=== PATIENT | male | born 1965 | race Caucasian/White ===

== ENCOUNTER 2016-12-10 20:02 | Emergency (ER) | payer OTHER ==
[~2016-12-10] VITALS: Ht 180.3 cm; Wt 158.8 kg
--- NOTE | ~2016-12-10 | EKG ---
[address] [address] ELECTROCARDIOGRAM REPORT Name: CONNOR MCGOWAN Room #: DEP Jamarcus#: [id number] Admission: 12/10/16 Attend Phys: Discharge: 12/10/16 Date of : 63 Report #: [id number] THIS REPORT FOR: //name// [facility] ED Test Date: 2016-12-10 Test Time: 20:13:11 Pat Name: CONNOR MCGOWAN Department: Room: Gender: M Electrophysiologist: SALONI : 1965 Requested By: Jeanie Hawkins Order Number: [id number] MD: Ankur Lu Measurements Intervals [place] Rate: 82 P: [place]: QRS: 28 QRSD: 97 T: 75 QT: 412 QTc: 482 Interpretive Statements Atrial fibrillation Baseline wander in lead(s) V1,V2,V3 Compared to ECG 03/03/2016 13:57:29 No significant changes Electronically Signed On 12-15-2016 21:45:46 CDT by Ankur Lu [email or web address] <ELECTRONICALLY SIGNED> By: Ankur Lu MD 12/15/16 2145 12 12 Ankur Lu MD /ULYSSES
[~2016-12-10 20:02] MED LIST: ACETAMINOPHEN325 M1 PO; ALUM-MAG HYDRO360 ML PO; AMLODIPINE BESYL5 MG PO; APAP650 PO; ASPIRIN325 PO; BACLOFEN 10MG T10 MG PO; BACTRIM DS TAB1 EACH PO; BACTROBAN CREAM30 G1 TOP; BAYER CHEWABLE81 MG PO; BENADRYL25 MG PO; BISAC-EVAC10 MG RECTAL; BISACODYL SUPP10 MG RECTAL; CARDURA4 MG PO; CARVEDILOL12.5 MG PO; CARVEDILOL25 MG PO; CARVEDILOL6.25 MG PO; CEFTIN500 MG PO; CELEXA 20 MG TA20 M1 PO; CITRATE OF MAG296 ML PO; CLOTRIMAZOLE10 GM MC; COLACE100 MG PO; COREG PO; COZAAR 25 MG TA25 M2 PO; COZAAR 50 MG TA50 M2 PO; COZAAR100 MG PO; DEMADEX20 MG PO; DIOVAN320 MG PO; DOCUSATE SODIU100 MG PO; DUONEB 2.5-0.5 M3 ML INH; ELIQUIS5 MG PO; ENOXAPARIN40 MG/0.1 SUBQ; FAMOTIDINE 20 M20 MG PO; FAMVIR500 MG PO; FLOMAX0.4 MG PO; GERI-LANTA LIQ355 ML PO; HYDRALAZINE 2525 M1 PO; HYDRALAZINE 2525 MG PO; HYDROCHLOROTH12.5 M1 PO; HYDROCHLOROTHIA25 M1 PO; HYDROCHLOROTHIA25 M2 PO; HYDROCODON-ACE1 EAC7 PO; HYDROCORTISONE45 G1 TOP; IBUPROFEN 200200 M1 PO; IBUPROFEN 400400 M1 PO; IBUPROFEN 400400 M2 PO; ICY HOT CREAM35.4 GM TP; IMDUR 30 MG TAB30 M1 PO; KEPPRA 500 MG500 M1 PO; KEPPRA1000 MG PO; LASIX 20 MG TAB20 MG PO; LASIX 40 MG TAB40 M2 PO; LIDOCAINE OINTMENT TOP; LIORESAL 10 MG10 MG PO; LIPITOR 10 MG10 M1 PO; LIPITOR10 MG PO; LOCOID 0.1% CRE15 GM; LOCOID 0.1% CRE15 GM TOP; LORATIDINE 10 M10 M1 PO; LYRICA 50 MG50 MG PO; MACROBID 100 M100 M1 PO; MAG-AL PLUS SUS30 ML PO; MAGOX 400400 MG PO; MEDROLDOSEPACK PO; MILK OF MA2400 MG/10 PO; MIRALAX17 GM PO; MOM PO; MS CONTIN15 MG PO; MUPIROCIN1 GM TP; MUSCLE RUB CRE113 G1 TOP; MYLANTA GAS MA125 MG; NEURONTIN 300300 M1 PO; NITROSTAT0.4 MG SUBLING; NORCO 5-325 TA1 EACH PO; NORVASC 2.5 MG2.5 M1 PO; NORVASC10 MG PO; NYSTATIN1 EA10 TOP; ONDANSETRON ODT4 MG PO; PANTOPRAZOLE SO40 M1 PO; PEPCID20 MG PO; PERCOCET 5-3251 EACH PO; PERIDEX 0.12%473 M1 PO; PERIDEX 0.12%473 M1 SSP; PHENAZOPYRIDIN100 M1 PO; PLAVIX 75 MG TA75 M1 PO; POTASSIUM CHLO20 ME1 PO; POTASSIUM20 PO; PROTONIX40 M1 PO; PROTONIX40 M2 PO; PROTONIX40 MG PO; REGLAN 5 MG TAB5 MG PO; SENNA CONCENTR8.6 MG PO; SENNA LAXATIVE25 MG PO; TYLENOL325 MG PO; VITAMIN D 5050000 I1 PO; VITAMIN D250000 UNIT PO; ZOFRAN4 MG PO; ZOLOFT 50 MG TA50 MG PO; ZOLOFT100 MG PO; ZOLOFT50 MG PO; ZPAK PO
[2016-12-10 20:42] LABS: ABSOLUTE NEUTROPHILS 7.6 thou/uL (1.4-8.2); BASOPHILS 0.5 % (0.0-2.0); EOSINOPHILS 1.5 % (0.0-3.0); HEMATOCRIT 44.7 % (42.0-52.0); HEMOGLOBIN 14.7 gm/dL (14.0-18.0); LYMPHOCYTES 18.2 % (24.0-44.0); MCH 28.6 pg (26.0-34.0); MCHC 32.8 g/dL (28.0-37.0); MCV 87.1 fL (80.0-100.0); MONOCYTES 7.3 % (1.0-8.0); PLATELET COUNT 135 thou/uL (150-400); POLYS 72.5 % (36.0-66.0); RBC 5.13 mil/uL (4.50-6.00); RDW 15.9 % (10.5-14.5); WBC 11.8 thou/uL (4.0-11.0)
[2016-12-10 20:46] LABS: MANUAL DIFF NO
[2016-12-10 20:50] LABS: CALCIUM 9.2 mg/dL (8.5-10.1); CREATININE 0.8 mg/dL (0.7-1.3); POTASSIUM 3.4 mmol/L (3.5-5.1)
[2016-12-10 20:59] LABS: MAGNESIUM 1.8 mg/dL (1.8-2.4); TROPONIN-I 0.18 ng/mL (<0.04-0.07)
[2016-12-10] MEDS ORDERED: NORCO 5-325 TA1 EACH PO (21:49)
== END 2016-12-10 22:35 ==
LOC: ER 20:02
PROVIDERS: Emergency Medicine
DX: R56.9 Unspecified convulsions (principal); R07.9 Chest pain, unspecified; R79.89 Other specified abnormal findings of blood chemistry; I10 Essential (primary) hypertension; E66.9 Obesity, unspecified; G47.33 Obstructive sleep apnea (adult) (pediatric); E78.5 Hyperlipidemia, unspecified; K21.9 Gastro-esophageal reflux disease without esophagitis; F32.9 Major depressive disorder, single episode, unspecified; F41.9 Anxiety disorder, unspecified; G89.29 Other chronic pain; I25.2 Old myocardial infarction; E66.01 Morbid (severe) obesity due to excess calories; F10.99 Alcohol use, unspecified with unspecified alcohol-induced disorder; Z86.718 Personal history of other venous thrombosis and embolism; Z86.14 Personal history of Methicillin resistant Staphylococcus aureus infection; Z86.711 Personal history of pulmonary embolism; Z68.42 Body mass index [BMI] 45.0-49.9, adult; Z88.5 Allergy status to narcotic agent; Z88.8 Allergy status to other drugs, medicaments and biological substances; Z88.0 Allergy status to penicillin; Z87.891 Personal history of nicotine dependence

== ENCOUNTER 2017-04-25 18:59 | Emergency (ER) | payer OTHER ==
[~2017-04-25] VITALS: Ht 175.3 cm; Wt 188.2 kg
[2017-04-25 19:24] LABS: ABSOLUTE NEUTROPHILS 7.4 thou/uL (1.4-8.2); BASOPHILS 0.3 % (0.0-2.0); EOSINOPHILS 1.4 % (0.0-3.0); HEMATOCRIT 42.8 % (42.0-52.0); HEMOGLOBIN 14.4 gm/dL (14.0-18.0); LYMPHOCYTES 13.2 % (24.0-44.0); MCH 29.5 pg (26.0-34.0); MCHC 33.6 g/dL (28.0-37.0); MCV 87.7 fL (80.0-100.0); MONOCYTES 7.4 % (1.0-8.0); PLATELET COUNT 208 thou/uL (150-400); POLYS 77.7 % (36.0-66.0); RBC 4.88 mil/uL (4.50-6.00); RDW 15.2 % (10.5-14.5); WBC 9.5 thou/uL (4.0-11.0)
[2017-04-25 19:37] LABS: CALCIUM 9.1 mg/dL (8.5-10.1); CREATININE 0.9 mg/dL (0.7-1.3); POTASSIUM 3.3 mmol/L (3.5-5.1)
[2017-04-25 19:42] LABS: ALBUMIN 3.4 g/dL (3.4-5.0); DIRECT BILIRUBIN 0.1 mg/dL (<0.1-0.3); TOTAL BILIRUBIN 0.4 mg/dL (<0.1-1.0); TOTAL PROTEIN 7.6 g/dL (6.4-8.2)
[2017-04-25 19:58] LABS: URINE BILIRUBIN NEGATIVE (Negative); URINE BLOOD TRACE (Negative); URINE CLARITY CLEAR; URINE COLOR YELLOW; URINE GLUCOSE-RANDOM* NEGATIVE (Negative); URINE KETONES NEGATIVE (Negative); URINE LEUKOCYTES TRACE (Negative); URINE NITRITE POSITIVE (Negative); URINE PROTEIN (DIPSTICK) NEGATIVE (Negative); URINE UROBILINOGEN 0.2 E.U./dl (0.2-1.0)
[2017-04-25 20:26] LABS: BACTERIA >30 Many /HPF (None Seen); CASTS None Seen /LPF (None Seen); CRYSTALS None Seen /LPF (None Seen); SQUAMOUS 4-10 Moderate /LPF (0-3); URINE RBC 0-2 Rare /HPF (0-2); URINE WBC 0-5 Rare /HPF (0-5)
[2017-04-26 00:06] VITALS: BP 117/71
[2017-08-29] MEDS ORDERED: ALBUTEROL2.5 MG/31 (23:31)
[2017-08-29] MEDS ORDERED: VITAMIN C500 M2 PO (23:32)
[2017-08-29] MEDS ORDERED: BISCODYL PO (23:33)
[2017-08-29] MEDS ORDERED: IRON325 PO (23:34)
[2017-08-29] MEDS ORDERED: MONUROL3 GM PO (23:35)
[2017-08-29] MEDS ORDERED: LIDODERM1 EACH TOP (23:37)
[2017-08-29] MEDS ORDERED: NYAMYC15 GM TOP (23:37)
[2017-08-29] MEDS ORDERED: OXYCODONE HCL 55 MG PO (23:38)
[2017-08-29] MEDS ORDERED: PROTONIX40 M2 PO (23:38)
[2017-08-29] MEDS ORDERED: LYRICA 75 MG CA75 MG PO (23:39)
[2017-08-29] MEDS ORDERED: MIRALAX17 GM PO (23:39)
[2017-08-29] MEDS ORDERED: ALDACTONE50 MG PO (23:40)
[2017-08-29] MEDS ORDERED: COUMADIN 4 MG TA4 M1 PO (23:41)
[2017-08-29] MEDS ORDERED: KEFLEX500 M1 PO (23:42)
== END 2017-04-26 00:07 ==
LOC: ER 18:59
PROVIDERS: Emergency Medicine
DX: N39.0 Urinary tract infection, site not specified (principal); I10 Essential (primary) hypertension; E78.5 Hyperlipidemia, unspecified; G47.33 Obstructive sleep apnea (adult) (pediatric); K21.9 Gastro-esophageal reflux disease without esophagitis; F32.9 Major depressive disorder, single episode, unspecified; F41.9 Anxiety disorder, unspecified; G89.29 Other chronic pain; R07.9 Chest pain, unspecified; E66.01 Morbid (severe) obesity due to excess calories; I69.820 Aphasia following other cerebrovascular disease; G62.9 Polyneuropathy, unspecified; Z68.44 Body mass index [BMI] 60.0-69.9, adult; Z86.14 Personal history of Methicillin resistant Staphylococcus aureus infection; Z86.718 Personal history of other venous thrombosis and embolism

== ENCOUNTER → 2017-08-29 | Emergency (ER) | payer OTHER ==
[~2017-08-29] VITALS: Ht 177.8 cm; Wt 187.8 kg
[~2017-08-29] MED LIST changes: +ALBUTEROL2.5 MG/31; +ALDACTONE50 MG PO; +BISCODYL PO; +COUMADIN 4 MG TA4 M1 PO; +IRON325 PO; +KEFLEX500 M1 PO; +LIDODERM1 EACH TOP; +LYRICA 75 MG CA75 MG PO; +MONUROL3 GM PO; +NYAMYC15 GM TOP; +OXYCODONE HCL 55 MG PO; +VITAMIN C500 M2 PO
== END ==
LOC: ER 21:15
DX: S91.311A Laceration without foreign body, right foot, initial encounter (principal); I10 Essential (primary) hypertension; E78.5 Hyperlipidemia, unspecified; E66.01 Morbid (severe) obesity due to excess calories; K21.9 Gastro-esophageal reflux disease without esophagitis; G40.909 Epilepsy, unspecified, not intractable, without status epilepticus; F41.9 Anxiety disorder, unspecified; F32.9 Major depressive disorder, single episode, unspecified; Z87.891 Personal history of nicotine dependence; Z88.5 Allergy status to narcotic agent; Z88.0 Allergy status to penicillin; W22.8XXA Striking against or struck by other objects, initial encounter; Y93.89 Activity, other specified; Y92.89 Other specified places as the place of occurrence of the external cause; Y99.8 Other external cause status

== ENCOUNTER 2017-08-30 09:56 | Emergency (ER) | payer OTHER ==
[~2017-08-30] VITALS: Ht 182.9 cm; Wt 188.2 kg
[2017-08-30 10:21] LABS: ABSOLUTE NEUTROPHILS 7.2 thou/uL (1.4-8.2); BASOPHILS 0.5 % (0.0-2.0); EOSINOPHILS 1.6 % (0.0-3.0); HEMATOCRIT 42.5 % (42.0-52.0); LYMPHOCYTES 10.7 % (24.0-44.0); MCH 30.1 pg (26.0-34.0); MCV 91.1 fL (80.0-100.0); MONOCYTES 5.5 % (1.0-8.0); PLATELET COUNT 201 thou/uL (150-400); POLYS 81.7 % (36.0-66.0); RBC 4.67 mil/uL (4.50-6.00); RDW 15.2 % (10.5-14.5); WBC 8.8 thou/uL (4.0-11.0)
[2017-08-30 10:29] LABS: CALCIUM 8.8 mg/dL (8.5-10.1); POTASSIUM 3.5 mmol/L (3.5-5.1)
== END 2017-08-30 12:57 ==
LOC: ER 09:56
PROVIDERS: Emergency Medicine
DX: G40.909 Epilepsy, unspecified, not intractable, without status epilepticus (principal); I10 Essential (primary) hypertension; E78.5 Hyperlipidemia, unspecified; K21.9 Gastro-esophageal reflux disease without esophagitis; E66.01 Morbid (severe) obesity due to excess calories; Z87.891 Personal history of nicotine dependence; Z88.0 Allergy status to penicillin; Z88.5 Allergy status to narcotic agent

== ENCOUNTER 2018-03-01 07:14 | Inpatient (IN) | payer OTHER ==
[2018-03-01] VITALS (7 sets, daily range): BP systolic 110–149; BP diastolic 57–90
[~2018-03-01] VITALS: Ht 177.8 cm; Wt 183.7 kg
--- NOTE | ~2018-03-01 | EKG ---
[address] [address] ELECTROCARDIOGRAM REPORT Name: CONNOR MCGOWAN Room #: 353-P ADM IN M.R.#: [id number] Admission: 03/01/18 Attend Phys: Aniceto Carpenter Discharge: Date of : 63 Report #: [id number] THIS REPORT FOR: //name// [facility] ED Test Date: 2018-03-01 Test Time: 07:49:36 Pat Name: CONNOR MCGOWAN Department: Room: 353 Gender: M Pipe Smoking Machine Offbearer: [facility] : 1965 Requested By: Jeanie Hawkins Order Number: [id number] MD: Hector Gottlieb Measurements Intervals [place] Rate: 136 P: NC: QRS: 45 QRSD: 82 T: 53 QT: 275 QTc: 414 Interpretive Statements Atrial fibrillation Low voltage, precordial leads Compared to ECG 12/10/2016 20:13:11 Low QRS voltage now present Electronically Signed On 03-02-2018 9:14:16 CDT by Hector Gottlieb [email or web address] <ELECTRONICALLY SIGNED> By: Hector Gottlieb MD, [facility] 03/02/18 0914 0749 0749 Hector Gottlieb MD, FACC /EPI
--- NOTE | ~2018-03-01 | EKG ---
[address] [place] [address] ELECTROCARDIOGRAM REPORT Name: CONNOR MCGOWAN Room #: 353-P ADM IN M.R.#: [id number] Admission: 03/01/18 Attend Phys: Aniceto Carpenter Discharge: Date of : 63 Report #: [id number] THIS REPORT FOR: //name// [facility] Test Date: 2018-03-02 Test Time: 12:45:02 Pat Name: CONNOR MCGOWAN Department: Room: 353 P Gender: M Site Medical Director: Korina JOHNSON : 1965 Requested By: Hayes Hernandez Order Number: [id number] MD: Hector Gottlieb Measurements Intervals [place] Rate: 94 P: [place]: QRS: 41 QRSD: 90 T: 60 QT: 337 QTc: 422 Interpretive Statements Atrial fibrillation Otherwise no significant abnormality Compared to ECG 03/01/2018 07:49:36 Heart rate has slowed Electronically Signed On 03-02-2018 17:09:47 CDT by Hector Gottlieb [email or web address] <ELECTRONICALLY SIGNED> By: Hector Gottlieb MD, [facility] 03/02/18 1709 D: 10/5 1245 Hector Gottlieb MD, FACC /EPI
--- NOTE | ~2018-03-01 | HC ---
[facility] [place] [address] CONSULTATION Name: CONNOR MCGOWAN Room #: 353-P ADM IN M.R.#: [id number] Admission: 03/01/18 Attend Phys: Aniceto Carpenter Discharge: Date of : 63 Report #: [id number] THIS REPORT FOR: //name// CC: Varun GARCIA physician/PCP Aniceto Carpenter DATE OF SERVICE: 03/02/2018 REASON FOR CONSULTATION: I was asked to evaluate concerning gram-negative bacteremia and sepsis. HISTORY OF PRESENT ILLNESS: The patient is a 52-year-old with previous stroke, intermediate resident, who was admitted through the Emergency Room yesterday with decreased mental status, tachycardia, found to be in atrial fibrillation with rapid ventricular response. He had temperature up to 101.6 degrees. His rate was controlled. Admitted to the Med/Surg floor. Blood cultures were obtained and now growing gram-negative bacilli. The patient was unable to give any further details. Did not report any chest pain, nausea, vomiting or diarrhea. No dysuria or back pain. The patient was a poor historian. He had aphasia from his previous stroke. He is essentially bedbound and does get up to a wheelchair with assistance from the intermediate. REVIEW OF SYSTEMS: The patient was unable to complete a 10-point review of systems. PAST MEDICAL HISTORY: Left hemorrhagic stroke, status post craniotomy, right hemiparesis with expressive aphasia 2011, pneumonia, DVT with IVC filter placed. The patient's mother states that he had further treatment at [facility] within the last several months. She could not elaborate further on this. Hypertension, hyperlipidemia, obesity, obstructive sleep apnea, gastroesophageal reflux, seizure disorder, anxiety, depression, chronic pain, myocardial infarction, cardiac stenting, venous stasis disease and cellulitis, vitamin D deficiency. ALLERGIES: LUKAS INHIBITORS, MORPHINE, PENICILLIN, ALTHOUGH HAS TOLERATED ZOSYN WITHOUT ISSUE. HE WAS GIVEN FOSFOMYCIN IN THE LONGTERM. MEDICATIONS: As noted on his MAR, which were reviewed. Was also on Coumadin. Now on Zosyn. FAMILY HISTORY: Noncontributory. SOCIAL HISTORY: Nonsmoker. No significant alcohol use, although previously had issues with narcotic addiction. [facility] [address] [place] [address] CONSULTATION Name: CONNOR MCGOWAN Room #: 353-P [facility] IN M.R.#: [id number] Admission: 03/01/18 Attend Phys: Aniceto Carpenter Discharge: Date of : 63 Report #: [id number] PHYSICAL EXAMINATION: GENERAL: The patient was awake and verbally responsive, although unable to give a significant history. SKIN: Mild venous stasis changes to his right lower leg without evidence of cellulitis. The patient was morbidly obese, well developed, well nourished, appeared his stated age. I was unable to roll him over to take a look at his backside. He had right hemiparesis. HEENT: Eyes were without scleral icterus or conjunctivitis. Mouth: No oral lesions or mucositis. NECK: Supple, no palpable adenopathy. LUNGS: Clear anteriorly. HEART: Regular without appreciable murmur, gallop or rub. ABDOMEN: Obese, soft, nontender with no hepatosplenomegaly or mass, able to be palpated. EXTREMITIES: Trace edema mostly on the right. NEUROLOGIC: He had generalized weakness, seemed more prominent on the right. Cranial nerves otherwise intact. Sensation intact. PSYCHIATRIC: No anxiety or depression noted. PELVIC: An indwelling Ortiz catheter with no lesion or mass to the external genitalia. LABORATORY STUDIES: Sodium 137, potassium 4.2, bicarbonate 27, creatinine 2.5, lactate 2.2. Liver function tests normal. BNP 7247. Hemoglobin 13.6, platelet count 115,000, WBC 20,000. TSH 2.4. Urinalysis, few wbc's, many bacteria. Blood cultures, gram-negative bacilli. Chest x-ray, right lower lobe pulmonary nodule. IMPRESSION: 1. A 52-year-old intermediate resident with fever, change in mental status, gram-negative bacteremia, and sepsis. 2. Atrial fibrillation with rapid ventricular response, morbid obesity, acute kidney injury. RECOMMENDATION: We will continue IV antibiotic therapy pending further culture results. Further imaging of the patient's abdomen and pelvis to help identify source. We will need further help in moving the patient in order to reassess his sacrum for evidence of any decubitus that may be contributing here. I have discussed with the patient's mother at the bedside. <ELECTRONICALLY SIGNED> By: Narayan Linder MD 03/03/18 0846 1333 2240 Narayan Linder MD /nt
--- NOTE | ~2018-03-01 | HC ---
[facility] [place] [address] CONSULTATION Name: CONNOR MCGOWAN Room #: 353-P ADM IN M.R.#: [id number] Admission: 03/01/18 Attend Phys: Aniceto Carpenter Discharge: Date of : 63 Report #: [id number] THIS REPORT FOR: //name// CC: Varun GARCIA physician/PCP Aniceto Carpenter HISTORY OF PRESENT ILLNESS: The patient is a 52-year-old gentleman with a history of remote left temporal hemorrhagic stroke requiring left frontotemporal craniotomy with residual hemiplegia and aphasia (2011). He has a history of permanent atrial fibrillation, chronically elevated troponin levels in a nondiagnostic range, prior DVT with pulmonary emboli. He now presents from the nursing facility with altered mental status. He is found to have an elevated white count and Gram-negative rods in his blood. Heart rates have been higher than usual. I have been asked to see him in this regard. A variety of Cardiology imaging or diagnostic testing procedures have been performed, all have been technically limited in light of his morbid obesity. In 2012, an echocardiogram, although technically difficult was thought to demonstrate normal systolic function. He is arousable and attempts single word answers to questions. He denies pain. His atrial fibrillation has been mildly elevated, although this is in the setting of high fever and sepsis. He denies palpitations or symptoms from his atrial dysrhythmia. MEDICATIONS: His reported medicines include aspirin 81 mg daily, baclofen, carvedilol, Lasix 40 mg twice daily, hydralazine 50 mg 4 times a day, iron, Keppra 1000 mg twice daily, Lipitor 10 mg daily, Lyrica, Nitrostat, Norvasc 5 mg daily, oxycodone, Pamelor 10 mg at bedtime, Plavix 75 mg daily, primidone 12.5 mg daily, Aldactone 50 mg twice daily, Flomax 0.4 mg daily, Zoloft. PAST MEDICAL HISTORY: Notable for a hemorrhagic stroke, hypertension, dyslipidemia, sleep apnea, neuropathy, morbid obesity, seizure disorder. SOCIAL HISTORY: Not obtainable. FAMILY HISTORY: Not obtainable. REVIEW OF SYSTEMS: Not obtainable. PHYSICAL EXAMINATION: GENERAL: Reveals a morbidly obese gentleman who is alert. He is arousable. VITAL SIGNS: Temperature is 98.4 degrees, blood pressure is 130/82, heart rate of 100 and irregular. HEENT: There are neither xanthelasma, subcutaneous xanthomata, oral mucosal, digital cyanosis or kyphoscoliosis present. CHEST: Reveals equal but distant breath sounds. CARDIAC: Irregularly irregular rhythm with normal S1, S2. ABDOMEN: Soft, morbidly obese. [facility] [address] [place] [address] CONSULTATION Name: CONNOR MCGOWAN Room #: 353-P [facility] IN M.R.#: [id number] Admission: 03/01/18 Attend Phys: Aniceto Carpenter Discharge: Date of : 63 Report #: [id number] EXTREMITIES: Reveal chronic venous stasis changes. NEUROLOGIC: Hemiparesis and aphasic. LABORATORY DATA: Sodium 135, potassium 4.8, creatinine 2.1. Troponin 0.06. Troponin has never been normal. There are dozens of troponins that have been ordered. ProBNP of 72/47. White count 31,000. Gram-negative rods in 2 blood cultures. EKG: Atrial fibrillation. IMPRESSION: 1. Gram-negative sepsis. 2. Permanent atrial fibrillation. 3. Encephalopathy. 4. Acute kidney injury. 5. Prior hemorrhagic stroke. 6. Seizure disorder. 7. Hypertension. 8. Chronic diastolic heart failure. 9. History of deep venous thrombosis with inferior vena cava filter. 10. Chronically elevated troponin. RECOMMENDATIONS: 1. Atrial fibrillation, rates are reasonably well controlled. Higher than usual rates are expected in the setting of sepsis, this should improve as his infection improves. 2. Continued pharmacologic therapy for diastolic heart failure, volume status appears to be stable. 3. Primary treatment. I agree with primary treatment and therapy directed towards sepsis and Gram-negative jaxon bacteremia. <ELECTRONICALLY SIGNED> By: Hector Gottlieb MD, [facility] 03/05/18 0905 0814 1348 Hector Gottlieb MD, FACC /nt
--- NOTE | ~2018-03-01 | HC ---
[facility] [place] [address] CONSULTATION Name: CONNOR MCGOWAN Room #: 353-P ADM IN M.R.#: [id number] Admission: 03/01/18 Attend Phys: Aniceto Carpenter Discharge: Date of : 63 Report #: [id number] THIS REPORT FOR: //name// CC: Varun GARCIA physician/PCP Aniceto Carpenter DATE OF SERVICE: 03/04/2018 CHIEF COMPLAINT: Right shoulder pain. HISTORY OF PRESENT ILLNESS: The patient is a 52-year-old gentleman seen today for evaluation of his right shoulder. The patient was admitted on 03/01/2018 after the half-way staff noticed decreased mentation and changes in his mental status. He has a baseline history of being noncommunicative with a history of chronic deficits of the right side due to a prior CVA. There was concern for possible cellulitis about the shoulder, which was why Orthopedics was asked to evaluate him. Apparently, he has a history of right shoulder pain that is chronic in nature and has had prior surgical treatment on the shoulder. PAST MEDICAL HISTORY: Extensive including abdominal pain, abnormal liver function test, acute kidney injury, a-fib, altered mental status, chest pain, congestive heart failure, elevated troponin, healthcare-associated pneumonia, hyperkalemia, left leg pain, leukocytosis, new-onset atrial fibrillation, non-ST elevated MD, pulmonary edema, rash, history of right lower extremity injury, seizures, sepsis, toe laceration, urinary retention, urinary tract infections, ventricular tachycardia. ALLERGIES: LUKAS INHIBITORS, MORPHINE. THE PATIENT HAS HAD AN ADDICTION TO MORPHINE IN THE PAST AND PENICILLIN. CURRENT MEDICATIONS: Please see current MAR. PAST SURGICAL HISTORY: Left hemorrhagic temporal lobe CVA with craniotomy in 01/2012, right-sided deficits with expressive aphasia, prior tracheostomy which was closed, DVTs in bilateral lower extremities with filter placement. SOCIAL HISTORY: The patient resides in a half-way, prior history of recreational drug use. Denied tobacco use, no alcohol use. PHYSICAL EXAMINATION: GENERAL: The patient is awake in bed, answers questions to the best of his ability. VITAL SIGNS: The patient has shallow breath, is on nasal cannula 4 liters of O2. Temperature 35.9, pulse 85, respirations 18, BP 117/84. EXTREMITIES: Examination of the shoulders, right shoulder demonstrates [address] [address] CONSULTATION Name: CONNOR MCGOWAN Room #: 353-P [facility] IN M.R.#: [id number] Admission: 03/01/18 Attend Phys: Aniceto Carpenter Discharge: Date of : 63 Report #: [id number] well-healed prior incisions with tattoos noted over the lateral arm, generalized stiffness of the shoulder is noted with passive forward elevation of approximately 90 degrees, external rotation of 5 degrees. At the end ranges of motion, the patient nods with some discomfort. He otherwise has no pain in the more limited arc of motion that he has present. Motor deficits prevent any significant manual muscle testing. I see no surrounding erythema. No fluctuance or increased warmth on the right shoulder as compared to the left. Left shoulder, he has active forward elevation of 120 degrees, external rotation 30 degrees. He has good strength with resisted strength testing. Negative impingement signs. Some mild edema in the right upper extremity is noted and it is lying at a side. Shoulder radiographs reveal some mild widening of the AC joint with prior acromioplasty. No acute fractures. They mention subacromial joint space widening for possible effusion, I think this is more likely related to his decreased muscular tone from a stroke. LABORATORY DATA: Reveals urine culture gram-negative rods. Blood culture, gram-negative rods. IMPRESSION: 1. Right shoulder pain and stiffness. History of probable rotator cuff repair and distal clavicle excision. 2. Multiple medical comorbidities and acute sepsis with likely urinary source. PLAN: At this point, Physical Therapy can perform some gentle range of motion exercises on the shoulder. I would not recommend any other interventional studies unless more suspicion warmth, erythema or pain could be localized to the shoulder. At that point, an MRI could be considered. As long as the patient is responding to his current treatment for his urinary tract infection and sepsis, he could be seen on an as needed basis for his shoulder. With his underlying cognitive function and hemiparesis, there may be limited treatment options for him. We will be available for further followup if needed. <ELECTRONICALLY SIGNED> By: Reza Lee MD 03/06/18 0904 1247 2108 Reza Lee MD /nt
[2018-03-01 07:38] LABS: HEMATOCRIT 43.1 % (42.0-52.0); HEMOGLOBIN 14.6 gm/dL (14.0-18.0); MCH 30.4 pg (26.0-34.0); MCHC 33.8 g/dL (28.0-37.0); MCV 90.1 fL (80.0-100.0); PLATELET COUNT 148 thou/uL (150-400); RBC 4.79 mil/uL (4.50-6.00); WBC 31.6 thou/uL (4.0-11.0)
[2018-03-01 07:49] LABS: CALCIUM 9.4 mg/dL (8.5-10.1); CREATININE 2.1 mg/dL (0.7-1.3); POTASSIUM 4.8 mmol/L (3.5-5.1)
[2018-03-01 07:55] LABS: ALBUMIN 2.8 g/dL (3.4-5.0); DIRECT BILIRUBIN 0.5 mg/dL (<0.1-0.3); TOTAL BILIRUBIN 0.9 mg/dL (<0.1-1.0); TOTAL PROTEIN 7.7 g/dL (6.4-8.2)
[2018-03-01 08:10] LABS: BE(vivo) -0.4 mmol/L (-2 to +3); HCO3 22.8 mmol/L (22.0-26.0); PCO2 33.6 mmHg (35.0-45.0); PO2 71.1 mmHg (80.0-100.0); sO2 95.1 % (92.0-98.0)
[2018-03-01 08:34] LABS: ABSOLUTE NEUTROPHILS 29.4 thou/uL (1.4-8.2)
[2018-03-01 09:31] LABS: URINE BILIRUBIN NEGATIVE (Negative); URINE BLOOD 2+ (Negative); URINE COLOR YELLOW; URINE GLUCOSE-RANDOM* NEGATIVE (Negative); URINE KETONES NEGATIVE (Negative); URINE NITRITE-REFLEX NEGATIVE (Negative); URINE PROTEIN (DIPSTICK) 1+ (Negative); URINE SPECIFIC GRAVITY 1.025 (1.005-1.035); URINE UROBILINOGEN 0.2 E.U./dl (0.2-1.0)
[2018-03-01 09:33] LABS: URINE LEUKOCYTES-REFLEX 1+ (Negative)
[2018-03-01 09:34] LABS: URINE CLARITY CLOUDY
[2018-03-01 09:48] LABS: CASTS None Seen /LPF (None Seen); SQUAMOUS >10 Many /LPF (0-3)
[2018-03-01 09:49] LABS: BACTERIA-REFLEX >30 Many /HPF (None Seen); URINE RBC 0-2 Rare /HPF (0-2); URINE WBC-REFLEX 6-15 Few /HPF (0-5)
[2018-03-01 09:50] LABS: AMORPHOUS URATES Moderate /LPF (None Seen)
[2018-03-02] VITALS (7 sets, daily range): BP systolic 89–137; BP diastolic 53–83
[2018-03-02 12:49] LABS: HEMATOCRIT 40.4 % (42.0-52.0); HEMOGLOBIN 13.6 gm/dL (14.0-18.0); MCH 30.3 pg (26.0-34.0); MCHC 33.7 g/dL (28.0-37.0); MCV 90.1 fL (80.0-100.0); RBC 4.49 mil/uL (4.50-6.00); RDW 15.9 % (10.5-14.5); WBC 20.8 thou/uL (4.0-11.0)
[2018-03-02 12:52] LABS: CALCIUM 9.3 mg/dL (8.5-10.1); CREATININE 2.5 mg/dL (0.7-1.3); POTASSIUM 4.2 mmol/L (3.5-5.1)
[2018-03-02 13:01] LABS: TROPONIN-I 0.06 ng/mL (<0.06)
[2018-03-03 04:24] LABS: ABSOLUTE NEUTROPHILS 15.7 thou/uL (1.4-8.2); BASOPHILS 0.2 % (0.0-2.0); EOSINOPHILS 0.2 % (0.0-3.0); HEMATOCRIT 38.1 % (42.0-52.0); HEMOGLOBIN 12.5 gm/dL (14.0-18.0); LYMPHOCYTES 3.6 % (24.0-44.0); MCH 29.7 pg (26.0-34.0); MCHC 32.8 g/dL (28.0-37.0); MCV 90.5 fL (80.0-100.0); MONOCYTES 9.8 % (1.0-8.0); PLATELET COUNT 120 thou/uL (150-400); POLYS 86.2 % (36.0-66.0); RBC 4.21 mil/uL (4.50-6.00); RDW 16.1 % (10.5-14.5); WBC 18.2 thou/uL (4.0-11.0)
[2018-03-03 04:35] VITALS: BP 126/69
[2018-03-03 04:52] LABS: CALCIUM 8.5 mg/dL (8.5-10.1); CREATININE 2.2 mg/dL (0.7-1.3); POTASSIUM 3.9 mmol/L (3.5-5.1)
[2018-03-03 07:49] VITALS: BP 124/79
[2018-03-03 11:21] VITALS: BP 142/91
[2018-03-03 17:19] VITALS: BP 116/75
[2018-03-03 20:19] VITALS: BP 117/73
[2018-03-04 04:07] LABS: CALCIUM 9.1 mg/dL (8.5-10.1); CREATININE 1.8 mg/dL (0.7-1.3); POTASSIUM 3.9 mmol/L (3.5-5.1)
[2018-03-04 04:25] VITALS: BP 126/75
[2018-03-04 04:44] LABS: HEMATOCRIT 38.8 % (42.0-52.0); HEMOGLOBIN 12.9 gm/dL (14.0-18.0); MCHC 33.3 g/dL (28.0-37.0); MCV 90.1 fL (80.0-100.0); PLATELET COUNT 120 thou/uL (150-400); RBC 4.31 mil/uL (4.50-6.00); RDW 16.2 % (10.5-14.5); WBC 15.1 thou/uL (4.0-11.0)
[2018-03-04 08:41] LABS: ABSOLUTE NEUTROPHILS 11.5 thou/uL (1.4-8.2); POLYCHROMASIA OCCASIONAL
[2018-03-04 08:42] LABS: ANISOCYTOSIS 1+
[2018-03-04 09:05] VITALS: BP 117/84
[2018-03-04 09:23] LABS: INR 1.5; PROTIME 15.3 Seconds (9.3-11.4)
[2018-03-04 14:02] VITALS: BP 121/81
[2018-03-04 18:20] VITALS: BP 173/98
[2018-03-04 18:24] VITALS: BP 119/77
[2018-03-04 19:59] VITALS: BP 102/63
[2018-03-05 03:30] VITALS: BP 116/76
[2018-03-05 06:29] LABS: HEMATOCRIT 38.7 % (42.0-52.0); HEMOGLOBIN 12.8 gm/dL (14.0-18.0); MCH 30.1 pg (26.0-34.0); MCHC 33.2 g/dL (28.0-37.0); MCV 90.9 fL (80.0-100.0); PLATELET COUNT 122 thou/uL (150-400); RBC 4.26 mil/uL (4.50-6.00); RDW 16.3 % (10.5-14.5); WBC 12.4 thou/uL (4.0-11.0)
[2018-03-05 06:40] LABS: CALCIUM 8.9 mg/dL (8.5-10.1); CREATININE 1.5 mg/dL (0.7-1.3); POTASSIUM 4.1 mmol/L (3.5-5.1)
[2018-03-05 07:39] VITALS: BP 110/73
[2018-03-05 07:48] LABS: ANISOCYTOSIS 1+
[2018-03-05 11:38] VITALS: BP 126/73
[2018-03-05 16:58] VITALS: BP 127/79
[2018-03-05 20:21] VITALS: BP 117/80
[2018-03-06 04:49] VITALS: BP 113/69
[2018-03-06 05:53] LABS: ABSOLUTE NEUTROPHILS 10.6 thou/uL (1.4-8.2); BASOPHILS 0.4 % (0.0-2.0); EOSINOPHILS 0.8 % (0.0-3.0); HEMATOCRIT 38.1 % (42.0-52.0); HEMOGLOBIN 12.2 gm/dL (14.0-18.0); LYMPHOCYTES 9.4 % (24.0-44.0); MCH 29.2 pg (26.0-34.0); MCHC 31.9 g/dL (28.0-37.0); MCV 91.5 fL (80.0-100.0); MONOCYTES 8.2 % (1.0-8.0); PLATELET COUNT 152 thou/uL (150-400); POLYS 81.2 % (36.0-66.0); RBC 4.16 mil/uL (4.50-6.00); RDW 16.4 % (10.5-14.5); WBC 13.1 thou/uL (4.0-11.0)
[2018-03-06 06:04] LABS: CALCIUM 8.6 mg/dL (8.5-10.1); CREATININE 1.3 mg/dL (0.7-1.3); POTASSIUM 4.6 mmol/L (3.5-5.1)
[2018-03-06 07:37] VITALS: BP 125/77
[2018-03-06 11:05] LABS: PROTIME 26.4 Seconds (9.3-11.4)
[2018-03-06 11:06] VITALS: BP 151/72
[2018-03-06 11:06] LABS: INR 2.5
[2018-03-06 16:14] VITALS: BP 142/78
[2018-03-06 19:45] VITALS: BP 163/80
[2018-03-07 04:10] VITALS: BP 149/79
[2018-03-07 06:51] LABS: ABSOLUTE NEUTROPHILS 11.1 thou/uL (1.4-8.2); BASOPHILS 0.3 % (0.0-2.0); EOSINOPHILS 1.3 % (0.0-3.0); HEMATOCRIT 37.3 % (42.0-52.0); HEMOGLOBIN 12.1 gm/dL (14.0-18.0); LYMPHOCYTES 8.1 % (24.0-44.0); MCH 29.4 pg (26.0-34.0); MCHC 32.4 g/dL (28.0-37.0); MCV 90.9 fL (80.0-100.0); MONOCYTES 6.3 % (1.0-8.0); PLATELET COUNT 184 thou/uL (150-400); RBC 4.11 mil/uL (4.50-6.00); RDW 16.4 % (10.5-14.5); WBC 13.1 thou/uL (4.0-11.0)
[2018-03-07 07:00] LABS: CALCIUM 8.4 mg/dL (8.5-10.1); CREATININE 1.1 mg/dL (0.7-1.3); POTASSIUM 4.5 mmol/L (3.5-5.1); TOTAL BILIRUBIN 0.5 mg/dL (<0.1-1.0); TOTAL PROTEIN 6.7 g/dL (6.4-8.2)
[2018-03-07 08:13] VITALS: BP 114/87
[2018-03-07] MEDS ORDERED: CARDIZEM CD240 MG PO (12:06)
[2018-03-07] MEDS ORDERED: CEFDINIR300 MG PO (12:06)
[2018-03-07] MEDS ORDERED: COLACE100 MG PO (12:16)
[2018-03-07] MEDS ORDERED: SENNA8.6 MG PO (12:16)
[2018-03-07 12:58] VITALS: BP 102/68
[2018-03-07 16:33] VITALS: BP 112/71
[2018-03-07 20:00] VITALS: BP 135/76
[2018-03-08 04:20] VITALS: BP 123/65
[2018-03-08 06:37] LABS: ABSOLUTE NEUTROPHILS 11.8 thou/uL (1.4-8.2); BASOPHILS 0.3 % (0.0-2.0); EOSINOPHILS 0.9 % (0.0-3.0); HEMOGLOBIN 12.6 gm/dL (14.0-18.0); MCH 29.8 pg (26.0-34.0); MCHC 33.2 g/dL (28.0-37.0); MCV 89.9 fL (80.0-100.0); PLATELET COUNT 214 thou/uL (150-400); POLYS 84.8 % (36.0-66.0); RBC 4.23 mil/uL (4.50-6.00); RDW 16.2 % (10.5-14.5); WBC 13.9 thou/uL (4.0-11.0)
[2018-03-08 06:56] LABS: CALCIUM 8.7 mg/dL (8.5-10.1); CREATININE 0.9 mg/dL (0.7-1.3); POTASSIUM 4.6 mmol/L (3.5-5.1)
[2018-03-08 07:12] VITALS: BP 124/87
[2018-03-08 11:12] VITALS: BP 131/74
[2018-03-08 15:35] VITALS: BP 136/77
[2018-03-08 19:20] VITALS: BP 128/79
[2018-03-09 04:20] VITALS: BP 150/93
[2018-03-09 05:37] LABS: ABSOLUTE NEUTROPHILS 11.8 thou/uL (1.4-8.2); BASOPHILS 0.1 % (0.0-2.0); EOSINOPHILS 0.6 % (0.0-3.0); HEMATOCRIT 37.5 % (42.0-52.0); HEMOGLOBIN 12.1 gm/dL (14.0-18.0); LYMPHOCYTES 10.5 % (24.0-44.0); MCH 29.1 pg (26.0-34.0); MCHC 32.2 g/dL (28.0-37.0); MCV 90.4 fL (80.0-100.0); PLATELET COUNT 236 thou/uL (150-400); POLYS 83.8 % (36.0-66.0); RBC 4.15 mil/uL (4.50-6.00); RDW 15.8 % (10.5-14.5); WBC 14.2 thou/uL (4.0-11.0)
[2018-03-09 05:49] LABS: ALBUMIN 2.1 g/dL (3.4-5.0); CALCIUM 8.2 mg/dL (8.5-10.1); CREATININE 0.9 mg/dL (0.7-1.3); PHOSPHORUS 3.2 mg/dL (2.5-4.9); POTASSIUM 4.5 mmol/L (3.5-5.1)
[2018-03-09 05:50] LABS: INR 3.4; PROTIME 35.2 Seconds (9.3-11.4)
[2018-03-09 07:44] VITALS: BP 123/87
[2018-03-09 10:58] VITALS: BP 111/68
== END 2018-03-09 18:29 | DRG 871 ==
LOC: ER 07:14 → EROBS 09:17 → 3W 09:17
PROVIDERS: Emergency Medicine; Family Medicine; Hospitalist
DX: A41.50 Gram-negative sepsis, unspecified (principal); G93.41 Metabolic encephalopathy; J15.0 Pneumonia due to Klebsiella pneumoniae; J96.21 Acute and chronic respiratory failure with hypoxia; N17.9 Acute kidney failure, unspecified; I50.32 Chronic diastolic (congestive) heart failure; N12 Tubulo-interstitial nephritis, not specified as acute or chronic; N20.1 Calculus of ureter; Z68.43 Body mass index [BMI] 50.0-59.9, adult; G47.33 Obstructive sleep apnea (adult) (pediatric); E78.5 Hyperlipidemia, unspecified; K21.9 Gastro-esophageal reflux disease without esophagitis; G40.909 Epilepsy, unspecified, not intractable, without status epilepticus; G89.29 Other chronic pain; E66.01 Morbid (severe) obesity due to excess calories; G62.9 Polyneuropathy, unspecified; F32.9 Major depressive disorder, single episode, unspecified; E55.9 Vitamin D deficiency, unspecified; I48.2 Chronic atrial fibrillation; I11.0 Hypertensive heart disease with heart failure; M25.419 Effusion, unspecified shoulder; M19.011 Primary osteoarthritis, right shoulder; K59.00 Constipation, unspecified; Z86.73 Personal history of transient ischemic attack (TIA), and cerebral infarction without residual deficits; Z93.0 Tracheostomy status; Z86.718 Personal history of other venous thrombosis and embolism; Z88.6 Allergy status to analgesic agent; Z88.0 Allergy status to penicillin; Z88.8 Allergy status to other drugs, medicaments and biological substances; I25.2 Old myocardial infarction; Z79.899 Other long term (current) drug therapy
CPT/HCPCS: 10879

== ENCOUNTER 2018-10-02 21:27 | Inpatient (IN) | payer OTHER ==
[~2018-10-02] VITALS: Ht 177.8 cm; Wt 195.0 kg
[~2018-10-02 21:27] MED LIST changes: +CARDIZEM CD240 MG PO; +CEFDINIR300 MG PO; +SENNA8.6 MG PO
[2018-10-02] MEDS ORDERED: COLACE 100 MG100 MG PO (21:47)
[2018-10-02] MEDS ORDERED: TIGER BALM MUSC57 GM (21:49)
[2018-10-02] MEDS ORDERED: TYLENOL325 MG PO (21:52)
[2018-10-02] MEDS ORDERED: COUMADIN 4 MG TA4 M1 PO (21:53)
[2018-10-02] MEDS ORDERED: ALDACTONE50 MG PO (21:54)
[2018-10-02 22:04] LABS: ABSOLUTE NEUTROPHILS 5.5 thou/uL (1.4-8.2); BASOPHILS 0.7 % (0.0-2.0); EOSINOPHILS 2.5 % (0.0-3.0); HEMATOCRIT 40.1 % (42.0-52.0); HEMOGLOBIN 13.3 gm/dL (14.0-18.0); LYMPHOCYTES 23.5 % (24.0-44.0); MCH 30.4 pg (26.0-34.0); MCHC 33.2 g/dL (28.0-37.0); MCV 91.5 fL (80.0-100.0); PLATELET COUNT 169 thou/uL (150-400); POLYS 65.3 % (36.0-66.0); RBC 4.38 mil/uL (4.50-6.00); RDW 14.6 % (10.5-14.5); WBC 8.4 thou/uL (4.0-11.0)
[2018-10-02 22:19] LABS: APTT 40.1 Seconds (24.5-32.8)
[2018-10-02 22:25] LABS: CALCIUM 6.6 mg/dL (8.5-10.1); CREATININE 0.7 mg/dL (0.7-1.3); POTASSIUM 3.3 mmol/L (3.5-5.1)
[2018-10-02 22:32] LABS: ALBUMIN 2.3 g/dL (3.4-5.0); TOTAL BILIRUBIN 0.3 mg/dL (<0.1-1.0); TOTAL PROTEIN 4.9 g/dL (6.4-8.2)
[2018-10-02 22:51] LABS: URINE BILIRUBIN NEGATIVE (Negative); URINE BLOOD TRACE (Negative); URINE CLARITY CLEAR; URINE COLOR YELLOW; URINE GLUCOSE-RANDOM* NEGATIVE (Negative); URINE KETONES NEGATIVE (Negative); URINE PROTEIN (DIPSTICK) NEGATIVE (Negative); URINE SPECIFIC GRAVITY 1.015 (1.005-1.035); URINE UROBILINOGEN 0.2 E.U./dl (0.2-1.0)
[2018-10-02 22:53] LABS: URINE LEUKOCYTES-REFLEX 3+ (Negative); URINE NITRITE-REFLEX POSITIVE (Negative)
[2018-10-02 23:00] LABS: CASTS None Seen /LPF (None Seen); MUCUS None Seen strn/LPF (None Seen); SQUAMOUS None Seen /LPF (0-3); WBC CLUMPS Few (None Seen)
[2018-10-02 23:01] LABS: CRYSTALS None Seen /LPF (None Seen); URINE RBC 0-2 Rare /HPF (0-2)
[2018-10-03 01:54] VITALS: BP 111/70
[2018-10-03 02:06] VITALS: BP 111/70
[2018-10-03 03:00] VITALS: BP 111/61
[2018-10-03 06:58] LABS: PROTIME 20.7 Seconds (9.3-11.4)
[2018-10-03 06:59] LABS: CALCIUM 8.6 mg/dL (8.5-10.1); CREATININE 1.1 mg/dL (0.7-1.3); MAGNESIUM 1.7 mg/dL (1.8-2.4); POTASSIUM 3.9 mmol/L (3.5-5.1)
[2018-10-03 08:44] VITALS: BP 113/72
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
[2018-10-03 16:29] VITALS: BP 102/62
--- NOTE | 2018-10-03 18:13 | NUR ---
PT VITAL SIGNS STABLE THROUGHOUT SHIFT. PT ABLE TO MAKE NEEDS KNOWN WITH GESTURES AND SIMPLE QUESTIONS. REPOSITION VIA PILLOW PLACEMENT. PT C/O HEADACHE, TREATED WITH TYLENOL. PT RESTING COMFORTABLY.
[2018-10-04 04:30] VITALS: BP 134/82
[2018-10-04 05:19] LABS: PROTIME 21.3 Seconds (9.3-11.4)
[2018-10-04 05:27] LABS: ALBUMIN 3.1 g/dL (3.4-5.0); CALCIUM 8.6 mg/dL (8.5-10.1); CREATININE 0.9 mg/dL (0.7-1.3); PHOSPHORUS 3.6 mg/dL (2.5-4.9); POTASSIUM 4.7 mmol/L (3.5-5.1); TROPONIN-I 0.07 ng/mL (<0.06)
[2018-10-04 07:30] VITALS: BP 126/73
[2018-10-04 15:30] VITALS: BP 127/68
[2018-10-04 19:34] VITALS: BP 110/50
--- NOTE | 2018-10-04 19:59 | NUR ---
ASSUMED CARE 0700. APHAGIA CAN COMMUNICATE BY INDICATING OR HAND MOTIONS. ALERT X3. NO BM NOTED TODAY. USES URINAL. FALL PRECAUTIONS IN PLACE. CALLS FOR ASSISTANCE. PER DR. SORENSEN MEDICALLY STABLE TO NM. CM WILL ROUND ON PATIENT ON FRIDAY.
[2018-10-05 04:12] VITALS: BP 111/77
--- NOTE | 2018-10-05 04:31 | NUR ---
Pt. rested quietly at intervals during the night when checked on during frequent rounds. He refuses to be turned and repositioned during the shift. C/o a headache and was given po tylenol (see emar) with some relief noted.
[2018-10-05 06:05] LABS: INR 2.4; PROTIME 24.5 Seconds (9.3-11.4)
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
[2018-10-05 08:00] VITALS: BP 130/80
--- NOTE | 2018-10-05 08:31 | EKG ---
[address] [address] ELECTROCARDIOGRAM REPORT Name: CONNOR MCGOWAN Room #: 459-P ADM IN M.R.#: [id number] ������������������ Admission: 10/03/18 ������������������ Attend Phys: Aniceto Carpenter Discharge: ������������������ Date of : 63 Report #: [id number] ����������������������������������������������������������������� [id number] THIS REPORT FOR: //name// [facility] ED Test Date: 2018-10-02 Test Time: 21:38:00 Pat Name: CONNOR MCGOWAN Department: Room: 459 Gender: M Living Supervisor: : 1965 Requested By: Sherwin Parks Order Number: [id number] MD: Ankur Lu Measurements Intervals [place] Rate: 56 P: [place]: QRS: 57 QRSD: 95 T: 56 QT: 423 QTc: 409 Interpretive Statements Atrial fibrillation Borderline low voltage, extremity leads Compared to ECG 03/02/2018 12:45:02 No significant changes Electronically Signed On 10-05-2018 8:31:36 CDT by Ankur Lu [email or web address] ��������������������������������������������� <ELECTRONICALLY SIGNED> ���������������������������������������� By: Ankur Lu MD ��������������������������������������������� 10/05/18 0831 D: [id number] Ankur Lu MD /ULYSSES
[2018-10-05 15:00] VITALS: BP 134/72
--- NOTE | 2018-10-05 16:29 | NUR ---
ASSUMED CARE 0700. APHAGIC ABLE TO MAKE NEEDS KNOWN. PROGRESSING TOWARDS GOAL. DISCHARGE ORDERS IN PLACE. CM WAITING FOR PLACEMENT. CALL LIGHT IN REACH.
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
[2018-10-05 19:39] VITALS: BP 120/83
[2018-10-06 03:48] VITALS: BP 132/80
--- NOTE | 2018-10-06 04:05 | NUR ---
ASSUMED CARE AROUND 1900. ALERT AND ORIENTED. APHAGIS WITB HEMEPARESIS TO R SIDE. SUPPOSITORY GIVEN AND PT HAD A BM. NO S/S ACUTE DISTRESS NOTED OR REPORTED AT THIS TIME. WILL CONT TO MOTNITOR FOR ANY CHANGES IN CONDITION.
[2018-10-06 05:59] LABS: INR 2.4; PROTIME 24.9 Seconds (9.3-11.4)
[2018-10-06 08:51] VITALS: BP 129/85
--- NOTE | 2018-10-06 11:01 | NUR ---
barn manager sent initial referral LTC to [facility]/ fax [phone]. Patient is ready for dc today and has orders. DP contacted Facility/admissions to let them know of incoming faxed referral and reminded them patient is ready today.
--- NOTE | 2018-10-06 14:43 | NUR ---
CM FOLLOWED UP WITH PT'S MOTHER/GUARDIAN THIS AM SHE ASKED THAT REFERRAL BE SENT TO [facility], [facility], AND ONE OTHER FACILITY. CM INDICATED THAT WE SHOULD BE LOOKING FOR ANOTHER [place] FACILITY [place] AND THEN ASK THAT FACILITY WORK TO GET PT INTO ONE OF THEIR [place] LOCATIONS. MOTHER ASKED THAT REFERRAL BE SENT TO [facility] FOR REVIEW. MICHEL CAME AND DID AN ONSIGHT VISIT. CM TO FOLLOW INDICATED WITH DC PLANNING.
[2018-10-06 15:05] VITALS: BP 121/50
--- NOTE | 2018-10-06 15:43 | NUR ---
[facility] INDICATED THEY CAN'T ACCEPT PT. REFERRAL TO BE SENT TO [facility]. CM TO FOLLOW INDICATED WITH DC PLANNING.
--- NOTE | 2018-10-06 18:25 | NUR ---
PT STABLE THROUGHOUT SHIFT. PT C/O HEADACHE, TREATED WITH ACETAMINOPHEN. PT HAD NO OTHER COMPLAINTS. PT RESTING COMFORTABLY, DISCHARGE PENDING.
[2018-10-06 19:19] VITALS: BP 128/84
[2018-10-07 03:19] VITALS: BP 126/75
--- NOTE | 2018-10-07 03:43 | NUR ---
ASSUMED CARE AROUND 1900. AXO WITH APHASIA. NO S/S ACUTE DISTRESS NOTED OR REPORTED AT THIS TIME. WILL CONT TO MONITOR FOR ANY CHANGES IN CONDITION.
[2018-10-07 07:14] VITALS: BP 127/77
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
[2018-10-07 14:15] VITALS: BP 109/56
--- NOTE | 2018-10-07 14:19 | NUR ---
dp sent referral to [facility] (use to be [facility], which was sent yesterday and Cee said she didn't receive). fax [phone]
--- NOTE | 2018-10-07 14:46 | NUR ---
[facility] OF [facility] INDICATED THEY CAN'T ACCEPT PT. REFERRAL WAS RESENT TO [facility] NOW CALLED [facility]. CM TO REAH OUT TO GUARDIAN FOR OTHER FACIITIES TO SEND REFERRALS TO. CM TO FOLLOW INDICATED WITH DC PLANNING.
[2018-10-07 20:08] VITALS: BP 114/51
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
--- NOTE | 2018-10-08 04:44 | NUR ---
Pt. rested quietly at intervals during the night when checked on during frequent rounds. He was given po tylenol for c/o a headache (see emar) with some relief noted. Refused to be turned and repositioned.
[2018-10-08 05:18] VITALS: BP 108/51
[2018-10-08 07:49] VITALS: BP 133/86
--- NOTE | 2018-10-08 10:42 | NUR ---
DISCHARGE PLANNING. PATIENT IS MEDICALLY READY FOR DISCHARGE. PENITENTIARY CARE PLACEMENT NEEDED. PATIENT ADMITTED FROM [facility], DOES NOT WISH TO RETURN. REFERRALS FAXED TO [facility]. CALL PLACED TO [facility] TO NOTIFY. [facility] STATES THAT THEY DO HAVE LTC BEDS AVAILABLE AND WILL REVIEW REFERRAL AND NOTIFY CM ONCE REFERRAL REVIEW COMPLETE. REFERRAL FAXED TO [facility]. CALL PLACED TO [facility] TO NOTIFY OF REFERRAL AND PATIENTS LTC NEED AT DISCHARGE. [facility] TO REVIEW AND NOTIFY ONCE COMPLETE. FOLLOWING TO ASSIST WITH DISCHARGE.
[2018-10-08 14:32] VITALS: BP 112/43
--- NOTE | 2018-10-08 20:04 | NUR ---
PT A&OX4, VSS, C/O HEADACHE AND MANAGED WITH TYLENOL. PATIENT HAS REFUSED ALL TURNS TODAY. FALL BUNDLE IN PLACE. WILL CONTINUE TO MONITOR.
[2018-10-08 20:27] VITALS: BP 113/52
--- NOTE | 2018-10-09 04:00 | NUR ---
Pt. rested quietly at intervals during the night when checked on during frequent rounds. He c/o a headache and po tylenol given (see emar) with some relief noted. Pt. has refused all turns this shift.
[2018-10-09 06:31] VITALS: BP 106/63
[2018-10-09 15:00] VITALS: BP 111/66
--- NOTE | 2018-10-09 15:23 | NUR ---
REFERRALS WERE SENT TO [facility], [facility], AND [facility]. [facility] INDICATED THEY COULDN'T ACCEPT PT. [facility] VISITED PT AND INDICATED THE WOULD SPEAK WITH PT'S MOM AND ASK THEIR BUSINESS OFFICE IF THEY WOULD BE ABLE TO ACCEPT AND WORK TO TRANSFER PT'S MEDICAID. SHE INDICATED SHE DIDN'T HAVE ANY OPEN BEDS AT THE MOMENT THOUGH. CM TO FOLLOW INDICATED WITH DC PLANNING.
--- NOTE | 2018-10-09 18:56 | NUR ---
PT A&OX4, VSS, C/O OF HEADACHE MANAGED WITH TYLENOL. PT HAS REFUSED ALL TURNS. I ENCOURAGED HIM TO LET ME SEE HIS BACK SIDE AND REFUSED WELL. FALL PRECAUTIONS IN PLACE. WILL CONTINUE TO MONITOR.
[2018-10-09 19:34] VITALS: BP 101/51
--- NOTE | 2018-10-10 02:55 | NUR ---
ASSUMED CARE AROUND 1900. AXOX3. REFUSED TURNS AND SUPPOSITORY. EXPLAINED B&R, STILL REFUSES. NO S/S ACUTE DISTRESS NOTED OR REPORTED AT THIS TIME. WILL CONT TO MONITOR FOR ANY CHANGES IN CONDITION.
[2018-10-10 06:15] VITALS: BP 112/58
[2018-10-10 07:09] VITALS: BP 142/58
[2018-10-10 15:46] VITALS: BP 99/47
--- NOTE | 2018-10-10 20:21 | NUR ---
ASSUMED CARE OF PATIENT AT 0715, PATIENT DENIES PAIN THIS AM, BUT STARTED C/O PAIN WITH RIGHT LOWER ABDOMEN. PATIENT DID C/O HEADACHE DURING THE SHIFT, TYLENOL 2 TABLETS GIVEN, WITH RELIEF. THIS RN NOTIFIED DR SORENSEN IN REGARD TO RIGHT LOWER ABDOMEN PAIN, RECEIVED ORDER FOR FLEETS ENEMA, AND MAGNESIUM CITRATE X 1. PATIENT GIVEN FLEETS ENEMA, WITH LARGE BOWEL MOVEMENT. PATIENT HAS LEFT FOREARM IV IN PLACE, AND REMAINS PATENT. PATIENT STILL WAITING ON PLACEMENT. WILL CONTINUE TO MONITOR.
[2018-10-10 21:06] VITALS: BP 115/64
[2018-10-11 04:28] LABS: ALBUMIN 3.1 g/dL (3.4-5.0); CALCIUM 8.8 mg/dL (8.5-10.1); PHOSPHORUS 3.7 mg/dL (2.5-4.9); POTASSIUM 4.3 mmol/L (3.5-5.1)
[2018-10-11 04:30] VITALS: BP 112/57
--- NOTE | 2018-10-11 05:07 | NUR ---
Assumed care at 1845. Pt resting in bed. AOX3. VSS. Refused to be turned. Applied nystatin to abdmn and groin area. Pt states abdmn pain is much better after a he had a bm. Pt is still waiting on place. Call light within reach. Bed in lowest position. Will continue to monitor.
[2018-10-11 08:00] VITALS: BP 130/72
--- NOTE | 2018-10-11 10:12 | NUR ---
TOWARDS POC PT A/O X3, VSS, AFEBRILE. REFUSED TO TURN ON THE BED. WILL CONTINUE TO MONITOR.
[2018-10-11 15:00] VITALS: BP 113/69
[2018-10-11 19:33] VITALS: BP 123/67
--- NOTE | 2018-10-11 23:41 | NUR ---
RECEIVED REPORT FROM OFFGOING DAY NURSE, ASSUMED CARE @ 19:15. IN BED, A&OX3, RFA IV PATENT. REFUSED TURNS AND SUPOSSITORY. USES LEFT HAND TO COMMUNICATE TO SUPPLEMENT VERBAL EXPRESSION D/T EXPRESSIVE APHASIA. RATES HUFF PAIN AT 10/10. TYLENOL GIVEN FOR HUFF PAIN. HRRR, LUNGS DIMINISHED, REPORTS BM YESTERDAY. CALL LIGHT WITHIN REACH, BED IN LOW POSITION. WILL CONTINUE TO MONITOR.
[2018-10-12 05:03] VITALS: BP 123/51
[2018-10-12 07:30] VITALS: BP 114/69
[2018-10-12 14:42] VITALS: BP 120/55
--- NOTE | 2018-10-12 16:03 | NUR ---
[facility] INDICATED THAT THEY ARE ABLE TO ACCEPT PT FOR ADMISSION. CM SPOKE WITH CHRISTINA KIM IN ADMISSIONS THERE AND SHE ARRANGED TRASNPORT TO 1730 VIA [employer] [facility]. CHART COPY MADE. ORDERS HAVE BEEN FAXED. REPORT TO BE CALLED TO ASK FOR [facility]. CM CALLED AND NOTIFIED PT'S MOTHER/GUARDIAN WELL PT'S SISTER. THEY ARE AWARE CM PROVIDED ADDRESS AND PHONE NUMBER. CM INDICATED THAT THEY CAN WORK WITH FACILITY TO CONTINUE TO FIND ALTERNATIVE PLACEMENT. NO OTHER CM INTERVENTION INDICATED. CASE CLOSED.
--- NOTE | 2018-10-12 18:33 | NUR ---
Received awake on bed. Due medications given as prescribed- able to swallow tablets without difficulty. With Right sided body weakness, Assisted in ADLs. Patient refuses to be turned on his sided despite explaining the need to turn him. On room air. A+Ox3. Able to use urinal to pass urine. With IV at R FA- patent and intact. Pt able to feed himself. Bariatric patient- Nystatin powder applied to his skin folds. Vital signs stable. Pt Aphasic, needs and concern Pt had hair shampoo today, had shave as well. Pt to be discharged today as per CM- been on discharge order for a couple of days just waiting for facility to accept him. told me pt to be fetched by transport between [id number]. Pt agreed to be turned before transport arrived, checked his back- no pressure sores; changed his chucks and gown. Fetched by transport via stretcher, personal belongings, discharge instructions given to transport. Report given to staff Rubi.
== END 2018-10-12 17:00 | DRG 388 ==
LOC: ER 21:27 → EROBS 10-03 01:37 → 4W 10-03 01:37
PROVIDERS: Emergency Medicine; Nurse Practitioner Acute Care; Nurse Practitioner Family; ADMIT Hospitalist
DX: K56.41 Fecal impaction (principal); E43 Unspecified severe protein-calorie malnutrition; N39.0 Urinary tract infection, site not specified; I69.351 Hemiplegia and hemiparesis following cerebral infarction affecting right dominant side; Z68.44 Body mass index [BMI] 60.0-69.9, adult; T74.21XA Adult sexual abuse, confirmed, initial encounter; Z66 Do not resuscitate; E66.01 Morbid (severe) obesity due to excess calories; E87.6 Hypokalemia; I10 Essential (primary) hypertension; B96.1 Klebsiella pneumoniae [K. pneumoniae] as the cause of diseases classified elsewhere; E78.5 Hyperlipidemia, unspecified; K21.9 Gastro-esophageal reflux disease without esophagitis; F41.9 Anxiety disorder, unspecified; F32.9 Major depressive disorder, single episode, unspecified; G89.29 Other chronic pain; G47.33 Obstructive sleep apnea (adult) (pediatric); G62.9 Polyneuropathy, unspecified; G40.909 Epilepsy, unspecified, not intractable, without status epilepticus; Z86.718 Personal history of other venous thrombosis and embolism; I25.2 Old myocardial infarction; Z86.14 Personal history of Methicillin resistant Staphylococcus aureus infection; Z88.0 Allergy status to penicillin; Z88.5 Allergy status to narcotic agent; Z88.8 Allergy status to other drugs, medicaments and biological substances
CPT/HCPCS: 10047